=== PATIENT | male | born 1990 | race Caucasian/White ===

== ENCOUNTER 2023-02-23 19:59 | Observation (INO) | payer MEDICAID, SELFPAY ==
[2023-02-23 20:01] VITALS: BP 114/70; PULSE 66; RESP 18; TEMP 37.2; O2SAT 99
[2023-02-23 20:04] VITALS: BP 114/70; PULSE 66; RESP 18; TEMP 37.2; O2SAT 99
--- NOTE | 2023-02-23 20:15 | EDS_ITS ---
HPI History of Present Illness Chief Complaint: Lower Extremity Injury Detail of Chief Complaint: Injury to right leg Informant: patient Narrative Narrative: Patient presents to the emergency department with an injury to the right lower extremity that occurred prior arrival in the emergency department. Patient states that he was [place]kating [place] [employer] when he fell injuring his right leg. Patient unable to bear weight afterwards. His significant other brought him in by private vehicle. PFSH PFS Home Medications bupropion HCl 300 mg 24 hr tablet, extended release 300 mg PO DAILY 02/23/23 [History Last Taken Unknown] Allergy/AdvReac Type Severity Reaction Status Date / Time No Known Allergies Allergy Verified 02/23/23 20:05 Surgical History (Updated 02/23/23 @ 21:05 by Gemma Hutton) History of tonsillectomy and adenoidectomy Surgical History no surgical history ROS ROS ED Review of Systems ROS Unobtainable: other Constitutional Constitutional ED: Reports lethargy; Denies chills, fever(s), sweats or weight loss Eyes Eyes: Denies blurry vision, change in vision or diplopia ENT ENT ED: Denies rhinorrhea or sore throat Cardiovascular Cardiovascular: Denies chest pain, orthopnea or racing heartbeat Respiratory/Chest Respiratory/Chest: Denies cough, dyspnea, dyspnea on exertion, orthopnea or sputum Gastrointestinal Gastrointestinal: Denies abdominal pain, diarrhea, nausea or vomiting Genitourinary Genitourinary ED: Denies dysuria, hematuria or urinary frequency Musculoskeletal Musculoskeletal: Reports other Details: Right leg pain/injury ; Denies arthralgias, back pain, myalgias or neck pain Integumentary Denies abscess, Abrasions or rash Neurologic Neurologic: Denies headache(s) or weakness Psychiatric Psychiatric: Denies anxiety, depression or suicidal thoughts Endocrine Endocrinology: Denies polydipsia, polyphagia or polyuria Hematologic/Lymphatic Hematologic/Lymphatic: Denies easy bleeding, easy bruising or lymphadenopathy Allergic/Immunologic Allergic/Immunologic ED: Denies mouth swelling, tongue swelling or urticaria EXAM Physical Exam Const Vital Signs: 02/23/23 20:01 02/23/23 20:04 Temperature 99.0 F 99.0 F Temperature Source Temporal Temporal Pulse Rate 66 66 Respiratory Rate 18 18 Blood Pressure 114/70 114/70 Blood Pressure Mean 84 84 Pulse Ox 99 99 Oxygen Delivery Method Room Air Room Air Positive well nourished and well developed General Appearance ED: well developed and NAD HEENT Reports TM's clear and moist mucous membranes normocephalic and atraumatic; Negative for trauma or tenderness Tympanic Membrane ED: Yes TM's clear Eyes PERRL and EOMs intact bilaterally General Eye ED: Negative for pale conjunctiva or scleral icterus Neck no lymphadenopathy, supple and no JVD General: Negative for tenderness Chest Wall inspection of chest normal and palpation of chest normal Chest: Negative for tenderness Resp normal respiratory effort and clear to auscultation bilaterally Effort and Inspection: Negative for respiratory distress or pain with movement Auscultation: Negative for rhonchi, wheezes or diminished lung sounds Cardio regular rate, regular rhythm, S1 normal heart sound, S2 normal heart sound and no murmurs Peripheral Pulses: pulses 2+ throughout GI normal to inspection, nondistended, normoactive bowel sounds, soft to palpation, non-tender, non-distended and no masses Back/Spine no CVA tenderness and no thoracic nor lumbar tenderness Extremity Extremity Narrative: Right lower extremity-patient has obvious deformity to the distal third of the tibia. No broken skin noted. He is neurovascular intact. General Extremety ED: Negative for edema General Extremity: Negative for edema Neuro oriented x3, CN's II-XII intact bilaterally, no sensory deficits noted and gait normal Sensorium / Orientation: awake, alert, oriented to person, oriented to place and oriented to time Motor Exam: strength 5/5 throughout and strength abnormal Psych mental status grossly normal Skin no rashes or lesions noted and no wounds MDM MDM MDM Narrative Medical decision making narrative: Patient presents with injury to right lower extremity with obvious deformity. IV line established. He was medicated with morphine 4 mg IV and Zofran 4 mg IV. X-rays show fracture of proximal fibula and distal tibia. Case will be discussed with orthopedic surgeon on-call. Patient had to be remedicated with a second dose of morphine. I discussed case with Dr. Villeda who will admit patient for surgical intervention. Patient placed in a long-leg posterior splint made out of Ortho-Glass and fabricated by myself. Patient tolerated procedure well. Radiography Diagnostic Testing: Clinical Impression(s) from Imaging Studies Tibia/Fibula X-Ray 02/23/23 20:20 IMPRESSION: 1. Acute laterally displaced spiral fracture of the distal shaft of the tibia. 2. Comminuted Maisonneuve fracture of the proximal shaft of the fibula. Electronically Signed: Puma Aguilera MD at 20:56 EDT , 2 view x-rays of the right tib-fib obtained interpreted by myself as fracture of the proximal fibula and fracture of the distal third of the tibia. Official report from radiology pending. Discharge Plan Dx/Rx/DC Orders Clinical Impression: Closed right fibular fracture, Closed right tibial fracture Disposition Disposition: Acute Care Hospital [facility]
[2023-02-23] MEDS: Morphine 4 MG/ML Syringe IV ×2 (20:17→21:03)
[2023-02-23] MEDS: Ondansetron 4 MG/2 ML Vial IV (20:17)
--- NOTE | 2023-02-23 20:20 | RAD_ITS ---
STUDY: X-RAY - RIGHT TIBIA AND FIBULA REASON FOR EXAM: Male, 32 years old. injury TECHNIQUE: 2 view(s) of the tibia and fibula were obtained. COMPARISON: None. FINDINGS: Acute laterally displaced spiral fracture of the distal shaft of the tibia. Associated comminuted fracture of the proximal shaft of the fibula (Maisonneuve fracture. The soft tissue structures are unremarkable. RAD/Tibia & Fibula 2 Views IMPRESSION: 1. Acute laterally displaced spiral fracture of the distal shaft of the tibia. 2. Comminuted Maisonneuve fracture of the proximal shaft of the fibula. Electronically Signed: Puma Aguilera MD at 20:56 EDT ,
[2023-02-23 21:26] VITALS: BP 110/73; PULSE 67; RESP 18; TEMP 37.3; O2SAT 98
[2023-02-23 21:27] VITALS: BMI 22.4
[2023-02-23 22:53] VITALS: BMI 20.1
[2023-02-23 23:04] VITALS: O2SAT 99
[2023-02-23 23:20] VITALS: BP 111/62; PULSE 68; RESP 16; TEMP 36.7; O2SAT 98
[2023-02-23] MEDS: 0.9% Normal Saline 1,000 ML 125 ML IV (23:24)
[2023-02-23] MEDS: oxyCODONE 5 MG Tablet 10 MG PO (23:26)
[2023-02-24] VITALS (11 sets, daily range): BP systolic 110–134; BP diastolic 56–83; PULSE 58–98; RESP 16–18; TEMP 36.2–37.6; O2SAT 97–100; BMI 20.1
[2023-02-24] MEDS: oxyCODONE 5 MG Tablet 10 MG PO ×3 (03:36→20:06)
[2023-02-24] MEDS: HYDROmorphone 0.5 MG/0.5 ML SYRINGE IV (04:24)
--- NOTE | 2023-02-24 05:00 | EKG12_ITS ---
Test Reason : PRE OP Blood Pressure : / mmHG Vent. Rate : 065 BPM Atrial Rate : 065 BPM P-R Int : 194 ms QRS Dur : 102 ms QT Int : 402 ms P-R-T Axes : 074 084 058 degrees QTc Int : 418 ms Normal sinus rhythm Normal ECG No previous ECGs available Confirmed by FARSHAD ALVARADO, LATISHA ([id number]), advertising editor SUZY MORAN ([id number]) on 02/26/2023 9:45:59 AM Referred By: ADITYA Confirmed By:LATISHA YEN MD
--- NOTE | 2023-02-24 05:25 | CT_ITS ---
INDICATION: fracture EXAMINATION/TECHNIQUE: X-RAY - RIGHT CT Lower Extremity W/O Contrast Injection COMPARISON: Tib-fib radiographs previous day. FINDINGS: Serial CT axial images through the ankle with coronal and sagittal reformatted series. Oblique displaced minimally comminuted distal fibula fracture. Additional subtle fracture of the margin of the anterolateral distal tibia, just proximal to the joint space. No other definite acute osseous abnormality. CT/Extremity Lower without Contra IMPRESSION: Serial fractures as above. Electronically Signed: Sunny Houston MD at 7:16 EDT ,
--- NOTE | 2023-02-24 05:33 | NURSING ---
Pt off floor for CT.
[2023-02-24 06:01] LABS: Absolute Lymphocyte Count 1.98 X10^3/uL (0.83-4.51); Absolute Neutrophil Count 5.8 X10^3/uL (2.0-7.7); Basophil# 0.03 X10^3/uL; Basophil% 0.3 % (0-1); Eosinophil# 0.08 X10^3/uL; Eosinophils% 0.9 % (0-5); Hematocrit 37.8 % (40-54); Hemoglobin 12.6 g/dL (13.0-16.5); Lymphocyte # 1.98 X10^3/ul (0.83-4.51); Lymphocyte % 22.9 % (19-41); Mean Corp Hgb Conc 33.3 g/dL (32-36); Mean Corpuscular Hgb 28.5 pg (27.0-32.0); Mean Corpuscular Volume 85.5 fL (80-94); Monocyte# 0.75 X10^3/uL; Monocyte% 8.7 % (0-10); NRBC Flagged by Analyzer 0 % (0-5); Neutrophil # 5.76 X10^3/uL (2.7-7.7); Neutrophil % 66.9 % (47-70); Platelet Count 242 K/mm3 (150-450); RBC Distribution Width CV 12.3 % (11.6-14.6); RBC Distribution Width SD 38.5 fl (35.1-43.9); Red Blood Count 4.42 M/mm3 (4.6-6.2); White Blood Count 8.6 K/mm3 (4.4-11.0)
[2023-02-24 06:15] LABS: International Normalized Ratio 1.1; Partial Thromboplast Time 31.1 Seconds (24.1-36.2); Prothrombin Time (Protime)PT. 14.3 SECONDS (11.7-14.9)
[2023-02-24] MEDS: HYDROmorphone 1 MG/ML Syringe IV ×2 (06:31→08:33)
[2023-02-24 06:33] LABS: Anion Gap 3 (5-15); BUN 15 mg/dL (7-18); BUN/Creat Ratio 13.8 RATIO (10-20); Calcium,Total 8.2 mg/dL (8.5-10.1); Chloride 108 mmol/L (98-107); Creatinine, Serum 1.09 mg/dL (0.70-1.30); EST Glomerular Filtration Rate 83 mL/min (>60); Est Glom Filt Rate - Afr Amer 101 mL/min (>60); Estimated Creatinine Clearance 85.18 ml/min; Glucose 116 mg/dL (74-106); Potassium 3.7 mmol/L (3.5-5.1); Sodium Level 138 mmol/L (136-145)
[2023-02-24] MEDS: 0.9% Normal Saline 1,000 ML 125 ML IV (07:50)
--- NOTE | 2023-02-24 09:29 | PCM.HP.STD ---
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 Denies other injury. Denies numbness. Did have x-ray and CT scan demonstrating fracture right tibia and proximal fibula. [facility] Medical History (Updated 02/24/23 @ 09:[address] Elmer Villeda ) ADHD Home Medications bupropion HCl 300 mg 24 hr tablet, extended release 300 mg PO DAILY 02/23/23 [History Last Taken Unknown] Allergy/AdvReac Type Severity Reaction Status Date / Time No Known Allergies Allergy Verified 02/23/23 20:05 Surgical History (Updated 02/23/23 @ 21:05 by Gemma Hutton) History of tonsillectomy and adenoidectomy Surgical History no surgical history Social History Smoking Status: Former smoker Vital Signs Vital Signs Vital Signs: 02/23/23 20:01 02/23/23 20:04 02/23/23 21:26 Temperature 99.0 F 99.0 F 99.2 F H Temperature Source Temporal Temporal Oral Pulse Rate 66 66 67 Respiratory Rate 18 18 18 Respiratory Effort Respiratory Depth Respiratory Pattern Blood Pressure 114/70 114/70 110/73 Blood Pressure Mean 84 84 85 Blood Pressure Source Blood Pressure Position Blood Pressure Location Pulse Ox 99 99 98 Oxygen Delivery Method Room Air Room Air Room Air 02/23/23 23:04 02/23/23 23:20 02/24/23 05:01 Temperature 98.1 F 98.2 F Temperature Source Oral Oral Pulse Rate 68 70 Respiratory Rate 16 16 Respiratory Effort Normal Non-Labored Respiratory Depth Normal Respiratory Pattern Normal Blood Pressure 111/62 115/63 Blood Pressure Mean 78 80 Blood Pressure Source Monitor Monitor Blood Pressure Position Semi-Fowlers Semi-Fowlers Blood Pressure Location Right Arm Right Arm Pulse Ox 99 98 99 Oxygen Delivery Method Room Air Room Air Room Air 02/24/23 07:38 Temperature 97.9 F Temperature Source Temporal Pulse Rate 62 Respiratory Rate 16 Respiratory Effort Respiratory Depth Respiratory Pattern Blood Pressure 122/83 H Blood Pressure Mean 96 Blood Pressure Source Monitor Blood Pressure Position Semi-Fowlers Blood Pressure Location Left Arm Pulse Ox 100 Oxygen Delivery Method Room Air Weight Weight: 136 lb 7.458 oz Body Mass Index (BMI) 20.1 Physical Exam Const alert, oriented x3 and no apparent distress General Appearance: cooperative and comfortable Extremity Extremity Narrative: Right lower extremity in a long-leg posterior splint is Her scapular refill he is able to wiggle his toes no numbness or tingling compartments are soft. Results Lab / Micro Data 02/24/23 05:25 02/24/23 05:25 Labs: Laboratory Results - last 24 hr 02/24/23 05:25: WBC 8.6, RBC 4.42 L, Hgb 12.6 L, Hct 37.8 L, MCV 85.5, MCH 28.5, MCHC 33.3, RDW Std Deviation 38.5, RDW Coeff of Carol 12.3, Plt Count 242, MPV 12.0, Immature Gran % (Auto) 0.300, Neut % (Auto) 66.9, Lymph % (Auto) 22.9, [place] % (Auto) 8.7, Eos % (Auto) 0.9, Baso % (Auto) 0.3, Absolute Neuts (auto) 5.8, Absolute Lymphs (auto) 1.98, Nucleated RBC % 0, PT 14.3, INR 1.1, APTT 31.1, Sodium 138, Potassium 3.7, Chloride 108 H, Carbon Dioxide 27.0, Anion Gap 3 L, BUN 15, Creatinine 1.09, Estim Creat Clear Calc 85.18, Est GFR (MDRD) Af Amer 101, Est GFR (MDRD) Non-Af 83, BUN/Creatinine Ratio 13.8, Glucose 116 H, Calcium 8.2 L Radiology Impression Tibia/Fibula X-Ray 02/23/23 20:20 IMPRESSION: 1. Acute laterally displaced spiral fracture of the distal shaft of the tibia. 2. Comminuted Maisonneuve fracture of the proximal shaft of the fibula. Electronically Signed: Puma Aguilera MD at 20:56 EDT , Lower Extremity CT 02/24/23 05:25 IMPRESSION: Serial fractures as above. Electronically Signed: Sunny Houston MD at 7:16 EDT , Assessment & Plan Assessment/Plan (1) Closed right tibial fracture: QUALIFIERS: Encounter type: initial encounter Tibia location: shaft Fracture alignment: displaced Fracture morphology: oblique Qualified Code(s): S82.231A - Displaced oblique fracture of shaft of right tibia, initial encounter for closed fracture PLAN: 32-year-old male sustaining injury to his right tibia after rollerskating injury yesterday. Has a displaced distal tibia shaft fracture oblique. CT scan also demonstrates nondisplaced extension of fracture. There is a proximal fibular fracture that is comminuted. PLAN: Plan Thorough discussion was had with the patient and his family member including risk benefits alternatives surgery. There is risk for bleeding infection nerve artery tissue damage need for further surgery continued pain postoperative restrictions. We discussed intramedullary fixation of the fracture and how the procedures performed and the need for him to be toe-touch weightbearing postoperatively for likely 8 weeks considering the nondisplaced fracture extension distally. Antibiotics were on-call the OR consent signed placed on the chart.
[2023-02-24] MEDS: Cefazolin 2 GM in 0.9% Normal Saline 100 ML IV ×2 (10:30→16:57)
--- NOTE | 2023-02-24 10:50 | RAD_ITS ---
STUDY: X-RAY - RIGHT TIBIA AND FIBULA REASON FOR EXAM: Male, 32 years old. TIBIAL RODDING IN OR TECHNIQUE: 2 view(s) of the tibia and fibula were obtained. COMPARISON: 02/23/2023 FINDINGS: Fluoroscopy of the right leg was utilized operating room during open reduction internal fixation of fracture of the distal tibia with an intramedullary carolina and 11 images are cemented for interpretation. . RAD/Tibia & Fibula 2 Views IMPRESSION: Fluoroscopy during open reduction internal fixation of fracture of the distal tibia. Electronically Signed: Puma Aguilera MD at 13:18 EDT ,
--- NOTE | 2023-02-24 13:09 | PCM.OP.BLANK ---
Operative Report Date of Procedure: 02/24/23 Preoperative diagnosis: Displaced spiral right distal tibia shaft fracture with nondisplaced distal fracture extension Postoperative diagnosis: Same Procedure: Intramedullary rodding of the right tibia Anesthesia: General Implants: Synthes intramedullary tibial carolina size 9x360, with 2 proximal Medial to lateral screws and 1 distal medial to lateral screws and 1 distal lateral oblique screw EBL: 25 Complications: None Condition: Stable to PACU Tourniquet time: 0 minutes Indication for procedure: 32-year-old male patient who was rollerskating following backwards and landing onto his right leg sustaining a distal tibial shaft fracture that was spiral and displaced with intra-articular extension distally that was nondisplaced demonstrated on CT we discussed operative versus nonoperative intervention specifically intramedullary rodding of the left tibia Risk benefits and alternatives were reviewed including risk of bleeding infection nerve, artery, bone, tissue damage, blood clot need for further surgery and continued pain.Postoperative expectations Procedure: Patient was in the preoperative holding area once again the upper extremity was then a identified by both patient and physician and was marked. Patient was met by anesthesia and brought back to the operating a wheeled cart transfer the upper table supine position. Anesthesia was started. A well-padded tourniquet was placed on the operative thigh but was not inflated. Patient was prepped and draped in usual sterile fashion a timeout was called ensure the proper patient procedure and extremity were being contemplated. Radiolucent triangle was placed underneath the knee and under fluoroscopy was used to identify the medial slope of the lateral tibial spine . This was in line with the mid patellar tendon and therefore a midline incision was made. Full-thickness flap were made until the patellar peritenon was identified and incised and the patellar tendon was split longitudinally. The infrapatellar fat pad was then partially excised. Under fluoroscopy the guidepin was inserted in the appropriate position an opening reamer was performed. We then placed the guide pin past the fracture site. I did have to make small stab incisions near the fracture site and spread with a hemostat a subperiosteal manner to avoid injury to the anterior tibial artery and deep peroneal nerve and then pulling longitudinal traction and a [id number] reduction clamp was used to reduce the fracture there was about 4 degrees of residual angulation the guidepin was then passed past the fracture site to the appropriate level of the tibial plafond . This was done after the fracture was held in a reduced position. The reamers that we had were not long enough to cross the fracture site and we had to wait to open another set of reamers which was not easily available this date because a small delay in the surgical time . we then sequentially reamed to 1.5mm over the carolina diameter so to a size 10-1/2 with significant cortical chatter. The appropriate size 9 mm carolina was then inserted. proximal screw Guide was attached to the proximal nail gig and 2x medial to lateral screws were placed. we than turned our attention distally and and placed 1 medial to lateral screws through the nail using perfect [place] technique and a second screw from lateral oblique position. Stab incisions were made and hemostat was used to ensure no injury to the saphenous Vein and nerve. Wounds were thoroughly irrigated and final fluoroscopic images in both AP and lateral projections were saved to both the proximal construct fracture site and distal construct. The patellar tendon was run with a 3-0 Monocryl followed by 3-0 subcutaneous Monocryl stitches followed by henrik in the skin, Xeroform 4 x 4 ABD web roll and an Kvng wrap was placed . All counts were correct patient tolerated procedure well without any intraoperative complications he was brought back to the PACU in stable condition.
[2023-02-24] MEDS: Dext 5%-0.45% NS 1,000 ML 100 ML IV (14:19)
[2023-02-24 19:36] LABS: Amphetamine Urine VISTA NEGATIVE (<1000 ng/mL); Barbiturate Urine VISTA NEGATIVE (< 200 ng/mL); Benzodiazepine Urine VISTA POSITIVE (< 200 ng/mL); Cocaine Urine VISTA NEGATIVE (< 300 ng/mL); Ecstacy Urine VISTA NEGATIVE (< 500 ng/mL); Methadone Urine VISTA NEGATIVE (< 300 ng/mL); PCP Urine VISTA NEGATIVE (< 25 ng/mL); THC Urine VISTA POSITIVE (< 50 ng/mL); Vista UDS pH Range 6
[2023-02-25] MEDS: Cefazolin 2 GM in 0.9% Normal Saline 100 ML IV ×2 (00:45→08:23)
[2023-02-25 00:50] VITALS: BP 109/57; PULSE 52; RESP 16; TEMP 36.6; O2SAT 98
[2023-02-25] MEDS: oxyCODONE 5 MG Tablet 10 MG PO ×2 (05:51→10:40)
[2023-02-25 05:56] VITALS: BP 117/72; PULSE 50; RESP 16; TEMP 36.8; O2SAT 98
[2023-02-25] MEDS: HYDROmorphone 1 MG/ML Syringe IV ×3 (06:41→12:22)
[2023-02-25 08:12] VITALS: BP 136/86; PULSE 64; RESP 16; TEMP 36.8; O2SAT 100
[2023-02-25] MEDS: 0.9% Saline Lock 10 ML Syringe IV ×3 (08:23→12:22)
[2023-02-25] MEDS: buPROPion (XL) 300 MG TABLET.XL PO (09:40)
[2023-02-25] MEDS: APIXABAN 2.5 MG TABLET (WCH) PO (09:40)
--- NOTE | 2023-02-25 09:57 | PN.ORTHO_ITS ---
Subjective Subjective Patient seen and examined, complain of pain denies any numbness in his leg or foot, no shortness of breath or chest pain Objective Data Objective Data Vital Signs: Vital Signs Temp Pulse Resp BP Pulse Ox O2 Del Method 98.2 F 64 16 136/86 H 100 Room Air 02/25/23 08:12 02/25/23 08:12 02/25/23 08:12 02/25/23 08:12 02/25/23 08:12 02/25/23 08:14 Oxygen Delivery Method Room Air Weight: 136 lb 7.458 oz Body Mass Index (BMI) 20.1 Intake & Output: Intake and Output for Last 24 Hours 02/23/23 02/24/23 02/25/23 23:59 23:59 23:59 Intake Total 2741.25 / 3141.25 1108.75 / 1108.75 Output Total 1125 / 1125 300 / 300 Balance 1616.25 / 2016. 808.75 / 808.75 Lab / Micro Data 02/24/23 05:25 02/24/23 05:25 Labs: Laboratory Results - last 24 hr 02/24/23 18:23: Urine Opiates Screen POSITIVE H, Urine Methadone Screen NEGATIVE, Ur Barbiturates Screen NEGATIVE, Ur Phencyclidine Scrn NEGATIVE, Ur Amphetamines Screen NEGATIVE, MDMA (Ecstasy) Screen NEGATIVE, U Benzodiazepines Scrn POSITIVE H, Urine Cocaine Screen NEGATIVE, U Cannabinoids Screen POSITIVE H , Ur Drug Screen Comment Radiography Diagnostic Testing: Radiology Impression Lower Extremity CT 02/24/23 05:25 IMPRESSION: Serial fractures as above. Electronically Signed: Sunny Houston MD at 7:16 EDT , ADDENDUM: 02/24/23 2306 IMPRESSION: undefined Tibia/Fibula X-Ray 02/24/23 10:50 IMPRESSION: Fluoroscopy during open reduction internal fixation of fracture of the distal tibia. Electronically Signed: Puma Aguilera MD at 13:18 EDT , Physical Exam Const alert, oriented x3 and no apparent distress General Appearance: cooperative Extremity Extremity Narrative: Right lower extremity dressing clean dry intact compartments soft he is neurovascular intact EHL he has minimal but intact dorsiflexion plantarflexion limited secondary to pain no numbness in the first webspace or the entire foot. Assessment & Plan Assessment/Plan (1) Closed right tibial fracture: QUALIFIERS: Encounter type: initial encounter Tibia location: shaft Fracture morphology: oblique Fracture alignment: displaced Qualified Code(s): S82.231A - Displaced oblique fracture of shaft of right tibia, initial encounter for closed fracture PLAN: Plan Postop day #1 right intramedullary rodding of tibia PT OT toe-touch weightbearing right lower extremity DVT prophylaxis Eliquis 2.5 mg twice daily for 2 weeks Strict ice and elevation of the right lower extremity when not ambulating Likely discharge home today after physical therapy if he can get around safely Outpatient physical therapy Follow-up 2 weeks.
[2023-02-25 10:03] VITALS: BP 128/72; PULSE 68; RESP 16; TEMP 36.8; O2SAT 100
--- NOTE | 2023-02-25 10:04 | PCM.DC ---
Discharge Instructions Diet Discharge Diet: No restrictions Activity Weight Bearing Status: Toe touch weight bearing (right lower extremity) Dressing / Incision Call your doctor if you observe: Shortness of breath and Chest pain Additional Dressing/Incision Instructions:: Leave dressing on and do not disturb until Saturday evening. Then remove dressing entirely and take shower. Wash entire operative extremity and body with warm water and antibacterial soap okay to wash over incisions. Do not submerge underwater completely such as in tub or pool. Keep animals away from incisions keep clean. Start outpatient physical therapy as soon as possible prescription sent to [facility] physical therapy. Toe-touch weightbearing right lower extremity encourage ankle and knee range of motion but no weightbearing through right lower extremity. Keep right lower extremity elevated above heart at all times when not ambulating. Narcotic medication was provided upon discharge do not take more than what was prescribed. Do not mix with recreational drugs or alcohol. Narcotic medication can be addictive minimize use and supplement with Tylenol. Follow Up Care Please Follow Up With: Elmer Villeda DO When: 2 weeks Test Results: Test results from this visit will be discussed in further detail at your follow-up appointment, if applicable. Discharge Plan Admission Admit Date/Time: 02/23/23 22:55 Primary Reason for Your Visit: Right distal tibia fracture Attending Provider: Elmer Villeda Primary Care Provider: Care Jennifer Suárez Primary Discharge Orders/Prescriptions Prescriptions: New acetaminophen [acetaminophen] 500 mg tablet 1,000 mg PO Q6H PRN Qty: 100 0RF Eliquis 2.5 mg tablet 2.5 mg PO BID Qty: 30 0RF oxycodone 5 mg tablet 5 - 10 mg PO Q4H PRN (Reason: pain) 5 Days Qty: 40 0RF Continued bupropion HCl 300 mg tablet extended release 24 hr 300 mg PO DAILY Patient Comments: Take 1 tablet by mouth once a day Referrals / Follow Up: Care PhysicianJennifer Primary [Primary Care Provider] - Disposition Disposition (needs filled in before D/C Order can be placed): Home, Self Care
--- NOTE | 2023-02-25 11:13 | PHA.DC_ITS ---
Pharmacy [facility] has performed discharge medication reconciliation and counseling for this patient. 1. ACETAMINOPHEN 1000MG PO Q6H PRN PAIN 2. APIXABAN 2.5MG PO BID X 15 DAYS 3. OXYCODONE 5-10MG PO Q4H PRN PAIN The patient's discharge medication list was reviewed for discrepancies and discrepancies were resolved. The patient was counseled on the following discharge medications and changes in medications for homegoing were reviewed. The Reason for Use, instructions for use, and potential side effects were reviewed for all new medications. The patient's questions regarding all of their medications were answered. The patient was able to verbally demonstrate an understanding of their discharge medications. Resident was counseled by pharmacy salespersonMichelle. Medications at Discharge Home Medications bupropion HCl 300 mg 24 hr tablet, extended release 300 mg PO DAILY 02/23/23 acetaminophen 500 mg tablet 1,000 mg (2 x 500 mg) PO Q6H PRN #100 tabs 02/25/23 apixaban 2.5 mg tablet (Eliquis) 2.5 mg PO BID #30 tabs 02/25/23 oxycodone 5 mg tablet 5 - 10 mg (1 - 2 x 5 mg) PO Q4H PRN pain 5 days #40 tabs 02/25/23
--- NOTE | 2023-02-25 12:23 | CASEMGMT ---
JOB VALERO: This RN CM met with pt face to face at bedside. Pt alert, answering questions appropriately. Pt states he lives with his aunt in a single story home and if he enters from the back there are only a few small steps. 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 Pt feels this will help him have the strength to use crutches and FWW upon return home. Pt states he has crutches at home and requests a FWW as that has been helpful to him here. Pt denies any preference in DME providers and is agreeable to using [employer]. Script obtained from Dr. Villeda and FWW obtained from [employer] office and provided to pt. [employer] form signed and sent to [employer] via [employer]. Pt denies any additional needs or concerns at this time. DC Plan: Home with support of family and FWW. Nawaf Hewitt RN CM
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
== END 2023-02-25 15:06 | disposition home or self-care (01) ==
LOC: ED 21:08 → MS3 21:51
PROVIDERS: Admitting Provider Orthopaedic Surgery; Emergency Provider Emergency Medicine; Visit Provider Orthopaedic Surgery
PROC: (CPT 27759; principal; 2023-02-24 10:30)
DX: S82.241A Displaced spiral fracture of shaft of right tibia, initial encounter for closed fracture (principal); Z87.891 Personal history of nicotine dependence; V00.121A Fall from non-in-line roller-skates, initial encounter; Y93.51 Activity, roller skating (inline) and skateboarding; S82.831A Other fracture of upper and lower end of right fibula, initial encounter for closed fracture; Y92.331 Roller skating rink as the place of occurrence of the external cause; F90.9 Attention-deficit hyperactivity disorder, unspecified type; Z79.899 Other long term (current) drug therapy
CPT/HCPCS: 29515; 27759; 01392; 64447; 73590; 73700; 76000; 80048; 80307; 85025; 85610; 85730; 93005; 94668; 96361; 96365; 96366; 96375; 96376; 97162; 97802; 99221; 99252; 99284; C1713; J7030; J7120; A4216; G0378; G0463; J2405; J7799

== ENCOUNTER 2023-03-05 10:43 | Emergency (ER) | payer MEDICAID, SELFPAY ==
[2023-03-05 10:44] VITALS: BP 108/58; PULSE 92; RESP 20; TEMP 36.6; O2SAT 100
--- NOTE | 2023-03-05 12:16 | CM.ED ---
Social Work Note Referral Source: case find Referral Reason: no PCP SW met with patient and introduced herself and role as [facility] Handle Sander Operator. Patient lying on hospital bed and agreeable to speak with SW with family member present. SW inquired about patient's insurance and current PCP. Patient verified insurance and reports no current PCP. SW provided patient with a list of local PCPs in network with patient's insurance and accepting new patients. Patient was receptive towards list and voiced no other needs. SW remains available if needs arise. Brittany Martinez MAMMOGRAPHY TECH, OSMAN
--- NOTE | 2023-03-05 13:27 | VDLE_ITS ---
Reason For Study: RLE Pain RIGHT CFV is compressible, spontaneous, phasic, competent and demonstrates normal augmentation. FV is compressible, spontaneous, phasic, competent and demonstrates normal augmentation. POP V is compressible, spontaneous, phasic, competent and demonstrates normal augmentation. T/P Trunk is compressible. PTV is compressible. RT PerV is compressible. Procedure This is a venous duplex using B-mode, color flow and spectral Doppler. Exam performed portable in ED. The study was technically limited. Limited views were obtained due to patient intolerance to compressions, surgical henrik and limited mobility of RLE. A preliminary report was called and/or faxed to Dr. Luna. VL/Venous Duplex US, Unilateral Interpretation Summary There is no evidence of right lower extremity deep vein thrombosis. Right great saphenous vein appears patent and compressible segmentally. This examination was noted to be t echnically difficult due to intolerance to compression and surgical henrik and limited mobility. Ordering Physician: Krzysztof Luna Referring Physician: N/A Performed By: Ramses Valentine RVT
[2023-03-05] MEDS: Oxycodone/Apap 5/325 Tablet PO (13:51)
--- NOTE | 2023-03-05 14:38 | EX.ED.DYSGE1 ---
HPI History of Present Illness Chief Complaint: Lower Extremity Injury Narrative Narrative: Patient is a 32-year-old male who is presenting with ongoing pain from a tib-fib surgery last Saturday. Patient has run out of his oxycodone. Patient had a prescription filled from his orthopedic surgery yesterday for additional number 60 tablets. Patient's surgery last Saturday was from Dr. Costa, orthopedic surgery. Patient had a prescription for Suboxone film 8 mg / 2 mg #42 filled on February 20. Patient had #40 oxycodone 5 mg tablets filled on February 25. Patient had #60 oxycodone 5 mg tablets filled on March 01. Patient says that he had another prescription written in the office yesterday from orthopedic surgeon Dr. Costa for number 60 tablets. Patient dropped this off at the [facility] in [place], they would not fill today secondary to patient's on Suboxone and he recently had a prescription filled on March 01. Patient has no significant new swelling. Patient's surgical incisions are clean, dry, intact. Patient is complaining of pain out of proportion to the right leg. Patient's grandmother is at bedside. He had no new injury. Patient has an Kvng wrap to his lower extremity. Patient is using crutches. Patient has no fever or chills. No chest pain or shortness of breath. No headache or neck pain. No other acute complaints. Patient is in the ER today because they would not fill his pain medication in the pharmacy so he came to the ER to get pain medication. No new injuries, swelling, or any acute changes to his right leg from yesterday's orthopedic visit per patient I have verified this with Liana nur nurse practitioner working with Dr. Costa. Number 60 tablets of oxycodone was written for yesterday, patient can have 1 to 3 tablets every 6 hours.. Patient took this to the [facility] in [place] today, and the pharmacist would not fill the prescription [facility] Medical History (Updated 03/05/23 @ 14:[address] Krzysztof Luna, DO) ADHD Home Medications bupropion HCl 300 mg 24 hr tablet, extended release 300 mg PO DAILY 02/23/23 [History Last Taken Unknown] acetaminophen 500 mg tablet 1,000 mg (2 x 500 mg) PO Q6H PRN #100 tabs 02/25/23 [Rx Last Taken Unknown] apixaban 2.5 mg tablet (Eliquis) 2.5 mg PO BID #30 tabs 02/25/23 [Rx Last Taken Unknown] oxycodone 5 mg tablet 5 - 10 mg (1 - 2 x 5 mg) PO Q4H PRN pain 5 days #40 tabs 02/25/23 [Rx Last Taken Unknown] oxycodone 5 mg tablet 5 - 10 mg (1 - 2 x 5 mg) PO Q4H PRN Pain Score 6-10/10 7 days #60 tabs 03/01/23 [Rx Last Taken Unknown] oxycodone 5 mg tablet 5 - 15 mg (1 - 3 x 5 mg) PO Q6H PRN Pain Score 6-10/10 7 days #60 tabs 03/04/23 [Rx Last Taken Unknown] Allergy/AdvReac Type Severity Reaction Status Date / Time No Known Allergies Allergy Verified 03/05/23 10:44 Surgical History History of tonsillectomy and adenoidectomy Social History Smoking Status: Former smoker ROS ROS ED ROS Narrative REVIEW OF SYSTEMS: Unless otherwise stated in this report the patient's positive and negative responses for review of systems for constitutional, eyes, ENT, cardiovascular, respiratory, gastrointestinal, neurological, , musculoskeletal, and integument systems and related systems to the presenting problem are either stated in the history of present illness or were not pertinent or were negative for the symptoms and/or complaints related to the presenting medical problem. EXAM Physical Exam Const Vital Signs: 03/05/23 10:44 Temperature 98 F Temperature Source Temporal Pulse Rate 92 Respiratory Rate 20 H Blood Pressure 108/58 L Blood Pressure Mean 74 Pulse Ox 100 Oxygen Delivery Method Room Air MDM MDM MDM Narrative Medical decision making narrative: I called Liana, the nurse practitioner working with Dr. Carnes's office. She verified that the orthopedic surgeon did write a prescription for #60 oxycodone 5 mg tablets yesterday, to use 5 mg up to 50 mg every 6 hours for pain. The orthopedic surgeon is aware that he did fill the Suboxone film on February 20. Patient tells me that he has not taken Suboxone since the beginning of the month and that his Suboxone doctor knows that he is taking Percocet for his pain for his right leg surgery. I called and spoke to the pharmacist at [facility] at 2:15 PM. She stated she did not fill the prescription because patient has a history of using Suboxone films. I told her that I did not call the orthopedic office, did verify from Liana nurse practitioner after she reviewed charts from Dr. Costa that this is a valid prescription from yesterday and he did authorize patient to take 1 up to 3 Percocet every 6 hours for pain. I advised her to fill the medication I had a 10-minute talk with patient and grandmother at discharge. Patient told me that he already informmed his Suboxone physician that he is taking Percocet now. Patient understands that he may not get another prescription for oxycodone and that he better start reducing his dosage. His orthopedic surgeon is not available until March 18. Patient understands if he comes back to the ER there is a good chance he will not get on prescription for oxycodone because he is aware that we cannot fill chronic medication from the ER. Patient understands very clearly that he needs to start reducing his dose of oxycodone, and make the 60 tablets last until he follows up with the orthopedic surgeon office. The patient tells me that he understands this very clearly next few weeks and will most likely be weaned down from oxycodone at his next apt. Patient DVT study was negative Radiography Diagnostic Testing: Clinical Impression(s) from Imaging Studies Venous Doppler Study 03/05/23 13:27 Interpretation Summary There is no evidence of right lower extremity deep vein thrombosis. Right great saphenous vein appears patent and compressible segmentally. This examination was noted to be technically difficult due to intolerance to compression and surgical henrik and limited mobility. Ordering Physician: Krzysztof Luna Referring Physician: N/A Performed By: Ramses Valentine RVT Discharge Plan Triage Chief Complaint: Lower Extremity Injury ED Provider: Krzysztof Luna Dx/Rx/DC Orders Clinical Impression: Pain of right leg Instructions: Taking Opioid Medicines, ED Arthralgia, ED Myalgias, ED RICE Prescriptions: No Action oxycodone 5 mg tablet 5 - 15 mg PO Q6H PRN (Reason: Pain Score 6-10/10) 7 Days Qty: 60 0RF bupropion HCl 300 mg tablet extended release 24 hr 300 mg PO DAILY Patient Comments: Take 1 tablet by mouth once a day acetaminophen [acetaminophen] 500 mg tablet 1,000 mg PO Q6H PRN Qty: 100 0RF Eliquis 2.5 mg tablet 2.5 mg PO BID Qty: 30 0RF oxycodone 5 mg tablet 5 - 10 mg PO Q4H PRN (Reason: pain) 5 Days Qty: 40 0RF oxycodone 5 mg tablet 5 - 10 mg PO Q4H PRN (Reason: Pain Score 6-10/10) 7 Days Qty: 60 0RF Primary Care Provider: Care Physician,No Primary Referrals: Care Physician,No Primary [Primary Care Provider] - Activity Restrictions/Additional Instructions: I have spoken to the pharmacist at [facility]. The pharmacist will fill your prescription that was written from the orthopedic surgeon yesterday. Taking 3 tablets a day every 4-6 hours, you will run out of medicine in the next 2 or 3 days. Your orthopedic surgeon is not available for the next several weeks. I highly suggest you decrease your medication to 1 Percocet every 4-6 hours to make your medication last. We are not able to refill chronic pain medication from the emergency room. Your DVT study was negative on your right leg today. Disposition Disposition: Home, Self Care Discharge Date/Time: 03/05/23 15:16
[2023-03-05 14:51] VITALS: BMI 17.7
== END 2023-03-05 15:16 | disposition home or self-care (01) ==
PROVIDERS: Emergency Provider Emergency Medicine; Visit Provider Emergency Medicine
DX: M79.604 Pain in right leg (principal); Z87.891 Personal history of nicotine dependence; Z98.890 Other specified postprocedural states; G89.18 Other acute postprocedural pain
CPT/HCPCS: 93971; 99283